=== PATIENT | female | born 1945 | race Caucasian/White ===

== ENCOUNTER 2023-03-05 09:17 | Observation (INO) ==
--- NOTE | 2023-01-28 10:20 | PAT Medication Instructions ---
Medication Instructions Date of Service January 28, 2023 Home Medications acetaminophen 500 mg tablet 500 mg PO Q6H PRN ascorbic acid (vitamin C) 1,000 mg tablet (Vitamin C) 1 g PO QAM cholecalciferol (vitamin D3) 50 mcg (2,000 unit) tablet (Vitamin D3) 100 mcg PO QAM clobetasol 0.05 % topical cream 1 applic topical BID PRN cyanocobalamin (vitamin B-12) 1,000 mcg tablet (Vitamin B-12) 1,000 mcg PO QAM docusate sodium 250 mg capsule (Stool Softener) 250 mg PO QPM PRN ibuprofen 200 mg tablet (Advil) 200 mg PO DAILY PRN naproxen sodium 220 mg capsule (Aleve) 220 mg PO QAM PRN oxycodone 5 mg tablet 5 mg PO BID PRN valacyclovir 1 gram tablet 1,000 mg PO DAILY PRN vit C 250 mg-vit E 90 mg-zinc 40 mg-copper 1 [id number] capsule (PreserVision AREDS-2) 1 tab PO BID vitamin B complex 1 cap PO QAM Continue as directed valacyclovir 1 gram tablet 1,000 mg PO DAILY PRN(if needed) ASK your surgeon for instructions ibuprofen 200 mg tablet (Advil) 200 mg PO DAILY PRN naproxen sodium 220 mg capsule (Aleve) 220 mg PO QAM PRN STOP taking 2 weeks before surgery (or as soon as possible if surgery is within 2 weeks) vit C 250 mg-vit E 90 mg-zinc 40 mg-copper 1 [id number]-[id number] capsule (PreserVision AREDS-2) 1 tab PO BID STOP taking 24 hours before surgery clobetasol 0.05 % topical cream 1 applic topical BID PRN DO NOT take the morning of surgery ascorbic acid (vitamin C) 1,000 mg tablet (Vitamin C) 1 g PO QAM cholecalciferol (vitamin D3) 50 mcg (2,000 unit) tablet (Vitamin D3) 100 mcg PO QAM cyanocobalamin (vitamin B-12) 1,000 mcg tablet (Vitamin B-12) 1,000 mcg PO QAM docusate sodium 250 mg capsule (Stool Softener) 250 mg PO QPM PRN vitamin B complex 1 cap PO QAM Take morning of surgery With a small sip of water, OTHERWISE NOTHING TO EAT OR DRINK AFTER MIDNIGHT: acetaminophen 500 mg tablet 500 mg PO Q6H PRN(if needed) oxycodone 5 mg tablet 5 mg PO BID PRN(if needed) Take evening before surgery acetaminophen 500 mg tablet 500 mg PO Q6H PRN(if needed) oxycodone 5 mg tablet 5 mg PO BID PRN(if needed) Other Notes If you have any questions please call us at [phone] or [phone] or [phone] or [phone]
--- NOTE | 2023-02-15 13:49 | Anesthesiology Consultation ---
Date of Service February 15, 2023 Assessment & Plan (1) Encounter for pre-operative examination: - Infectious disease screening: Per assessment on 02/15/23: Patient was Covid positive 01/29/23 (home test). was Covid positive shortly prior to patient developing symptoms/testing positive herself. Symptoms resolved- subsequent Covid home tests were negative. Pt can proceed as scheduled without additional preop Covid testing or additional Covid contact precautions per protocol. - Outpatient joint assessment: Pt currently scheduled for inpatient pathway. If surgeon requests review for outpatient joint pathway, patient is not recommended candidate for outpatient joint program from anesthesia standpoint based on available information. Chart Review Chart Review: Acceptable Risk for Surgery and Patient seen in Pre Admission Testing Teaching & Discussion Pre-Anesthesia Teaching/Discussion Notes: Instructed NPO after midnight before surgery,except medications with 15 cc of water. Medication instructions provided according to the PAT guidelines. History Surgery Operation Date: 03/05/23 10:55 Proposed Procedures p Right Total Knee Arthroplasty(Right) - Ivan Shaffer, Height/Weight Height: 5 ft 4 in Weight: 102.2 kg Allergies Allergy/AdvReac Type Severity Reaction Status Date / Time adhesive Allergy Severe skin Verified 01/28/23 08:29 reaction latex Allergy Unknown Unknown Verified 01/28/23 08:29 Medications Home Medications Medication Instructions Recorded Confirmed Last Taken acetaminophen 500 mg tablet 500 mg PO Q6H PRN Pain 01/28/23 01/28/23 Unknown ascorbic acid (vitamin C) 1,000 mg 1 g PO QAM 01/28/23 01/28/23 Unknown tablet (Vitamin C) cholecalciferol (vitamin D3) 50 100 mcg PO QAM 01/28/23 01/28/23 Unknown mcg (2,000 unit) tablet (Vitamin D3) clobetasol 0.05 % topical cream 1 applic topical BID PRN prn 01/28/23 01/28/23 Unknown cyanocobalamin (vitamin B-12) 1,000 mcg PO QAM 01/28/23 01/28/23 Unknown 1,000 mcg tablet (Vitamin B-12) docusate sodium 250 mg capsule 250 mg PO QPM PRN prn 01/28/23 01/28/23 Unknown (Stool Softener) ibuprofen 200 mg tablet (Advil) 200 mg PO DAILY PRN Pain 01/28/23 01/28/23 Unknown naproxen sodium 220 mg capsule 220 mg PO QAM PRN Pain 01/28/23 01/28/23 Unknown (Aleve) oxycodone 5 mg tablet 5 mg PO BID PRN Pain 01/28/23 01/28/23 Unknown valacyclovir 1 gram tablet 1,000 mg PO DAILY PRN prn 01/28/23 01/28/23 Unknown vit C 250 mg-vit E 90 mg-zinc 40 1 tab PO BID 01/28/23 01/28/23 Unknown mg-copper 1 [id number] capsule (PreserVision AREDS-2) vitamin B complex 1 cap PO QAM 01/28/23 01/28/23 Unknown Past Medical History Medical History Osteoarthritis History of kidney stones Hx 4-5 years ago, no issues since Exercise / Class Metabolic Activity III < 4 Walking/Shop/Light housework Past Surgical History Surgical History History of bilateral carpal tunnel release History of hysterectomy History of left knee replacement History of total left hip replacement History of lumbar spinal fusion L4-L5 fusion Hx of lithotripsy Past Anesthesia History No Hx of Anesthesia Complications and No Family Hx of Anesthesia Complications History of PONV No Hx of PONV and Hx of Motion Sickness (Situational) Social History Smoking Status: Never smoker Do You Dip or Chew Tobacco: No Hx Alcohol Use: Yes alcohol intake frequency: holidays/special occasions only Hx Substance Use: No Review of Systems Patient denies chest pain, shortness of breath, fever, chills, cough, wheezing, palpitations. Physical Exam Vital Signs VITALS BP 158/80 P 57 TEMP 98.7 SP02 96%RA RESP 18 PHYSICAL Full cervical extension range of motion. Full TMJ range of motion. TMD 3.5 finger breaths Mallampati Score 2 Dentition: missing molars, possible crown Lungs: clear throughout to auscultation Cardiac: regular rate and rhythm, no murmurs noted Spine: normal Carotid arteries: negative bruit Extremities: no LE edema Lab Results Anesthesia Preop Results Results Anesthesia Widget: WBC 6.47 K/ul (4.8-10.8) 02/15/23 Hgb 13.0 g/dl (12.0-16.0) 02/15/23 Hct 39.9 % (37.0-47.0) 02/15/23 Plt 230 K/uL (130-400) 02/15/23 Na 140 mmol/L (136-145) 02/15/23 K 4.7 mmol/L (3.5-5.1) 02/15/23 Cl 105 mmol/L (98-107) 02/15/23 CO2 29 mmol/L (21-32) 02/15/23 BUN 15 mg/dl (6-23) 02/15/23 Creat 0.60 mg/dl (0.6-1.2) 02/15/23 Glucose Level 95 mg/dl (70-99(Fasting)) 02/15/23 PT 10.7 Seconds (9.0-12.0) 02/15/23 PTT 26 Seconds (21-31) 02/15/23 INR 1.0 (0.9-1.1) 02/15/23 Blood Type O Negative 02/15/23 Antibody Screen NEGATIVE 02/15/23 Testing Electrocardiogram Date: 02/15/23 NSR at 70bpm. "Normal ECG" Chest X-Ray Date: 02/15/23 FINDINGS: PA and lateral chest radiographs are obtained. No prior studies are available for comparison at the time of dictation. The heart is mildly enlarged noting atherosclerotic calcification of the thoracic aorta. The pulmonary vasculature is noncongested. Linear scarring is seen in the left midlung. The lungs and pleural spaces are otherwise clear. There is no pneumothorax. The skeletal structures are osteopenic. The bony thorax appears intact. Degenerative change and hyperkyphosis is noted in the thoracic spine. IMPRESSION: Cardiomegaly with no active disease in the chest.
--- NOTE | 2023-03-04 12:35 | History & Physical Report ---
Date of Service March 04, 2023 Assessment & Plan (1) Osteoarthritis of right knee: We will proceed with a right total knee arthroplasty. Postoperatively she will be started on aspirin for DVT prophylaxis and kept overnight in the hospital for postop medical management. She plans to have the hospital set up home health upon discharge. History of Present Illness Chief Complaint: Osteoarthritis of the right knee. Primary Care Provider: Milind Potter MD Funmilayo is a pleasant 77-year-old female who has been dealing with chronic increasing right knee pain. She had a left knee replacement done by Dr. St in 2018. Unfortunately, she dealt with arthrofibrosis postoperatively. She still has poor motion of the knee. She is struggling more and more with her right knee. X-rays and clinical examination been diagnostic for osteoarthritis of the right knee. After failing conservative treatment, she has elected proceed with a right total knee arthroplasty. Allergies Allergy/AdvReac Type Severity Reaction Status Date / Time adhesive Allergy Severe skin Verified 01/28/23 08:29 reaction latex Allergy Unknown Unknown Verified 01/28/23 08:29 Home Medications Medication Instructions Recorded Confirmed Type acetaminophen 500 mg tablet 500 mg PO Q6H PRN Pain 01/28/23 01/28/23 History ascorbic acid (vitamin C) 1,000 mg 1 g PO QAM 01/28/23 01/28/23 History tablet (Vitamin C) cholecalciferol (vitamin D3) 50 100 mcg PO QAM 01/28/23 01/28/23 History mcg (2,000 unit) tablet (Vitamin D3) clobetasol 0.05 % topical cream 1 applic topical BID PRN prn 01/28/23 01/28/23 History cyanocobalamin (vitamin B-12) 1,000 mcg PO QAM 01/28/23 01/28/23 History 1,000 mcg tablet (Vitamin B-12) docusate sodium 250 mg capsule 250 mg PO QPM PRN prn 01/28/23 01/28/23 History (Stool Softener) ibuprofen 200 mg tablet (Advil) 200 mg PO DAILY PRN Pain 01/28/23 01/28/23 History naproxen sodium 220 mg capsule 220 mg PO QAM PRN Pain 01/28/23 01/28/23 History (Aleve) oxycodone 5 mg tablet 5 mg PO BID PRN Pain 01/28/23 01/28/23 History valacyclovir 1 gram tablet 1,000 mg PO DAILY PRN prn 01/28/23 01/28/23 History vit C 250 mg-vit E 90 mg-zinc 40 1 tab PO BID 01/28/23 01/28/23 History mg-copper 1 [id number]-wmbuqp capsule (PreserVision AREDS-2) vitamin B complex 1 cap PO QAM 01/28/23 01/28/23 History Past Med/Surg History Medical History Osteoarthritis History of kidney stones Hx 4-5 years ago, no issues since Surgical History History of bilateral carpal tunnel release History of hysterectomy History of left knee replacement History of total left hip replacement History of lumbar spinal fusion L4-L5 fusion Hx of lithotripsy Social History Smoking Status: Never smoker Second Hand Exposure: No; Do You Dip or Chew Tobacco: No; Tobacco Cessation Education Requested by Patient: No Hx Alcohol Use: Yes Hx Substance Use: No Preferred Language: [place] Vice President Digital Strategist Required: No Beliefs That Will Affect Care: None Current Living Situation: Spouse Other Information That Helps Us Care for You: No Feels Safe at Home: Yes Safety Concerns: Feels Safe At This Time Assistive Devices: Cane and Glasses Review of Systems All systems reviewed & are unremarkable except as noted in HPI & below. Physical Exam On physical examination the right knee, she has a varus deformity. She has tenderness palpation of the distal medial femoral condyle and over the medial joint line.. Constitutional WD/WN, vitals as above Eyes PERRL, conjunctivae normal, anicteric sclerae ENMT external ear and nose normal, oropharynx normal Neck trachea midline, no thyromegaly Respiratory normal respiratory effort Cardiovascular RRR, no murmur, no edema Gastrointestinal (Abdomen) normal bowel sounds, soft, nontender, no hepatosplenomegaly Psychiatric A+Ox3, euthymic affect Results & Data Results & Data Laboratory Results . Diagnostic Findings X-rays of the right knee show advanced osteoarthritis with joint space narrowing, osteophyte formation, and eykc-ji-rhxv articulation. PG Care Time/CCT Total # of Minutes Spent Total Time Spent with Patient: Total time spent is greater than 50% in coordination of care (as documented) at patient's floor/unit and/or counseling patient: Coding Level of Care Code None Diagnoses Osteoarthritis of right knee M17.11
[~2023-03-05 09:17] MED LIST: ACETAMINOPHEN 500 MG TAB PO SCH; FAMOTIDINE 20 MG TAB PO SCH; GABAPENTIN 300 MG CAP PO SCH; LR 500ML BOLUS, THEN 15ML/HR IV SCH; LR 60ML/HR IV SCH; ROPIV 0.5% 246mg, Ketorolac 30mg, EPINEPHrine 0.5mg in NSS INFIL SCH; ROPIVACAINE 0.5% 5 MG/ML 30 ML VIAL ONE; TRANEXAMIC ACID 1,000 MG **IV Intra-op IV SCH; TRANEXAMIC ACID 1,000 MG **IV Pre-op IV SCH; ceFAZolin 2000MG 2,000 MG/15 ML SYR IV SCH; dexAMETHasone**PF** 10 MG/ML VIAL IV SCH
[2023-03-05] MEDS ORDERED: MIDAZOLAM HCL 1 MG/ML 2ML VIAL ONE (09:38)
--- NOTE | 2023-03-05 10:17 | History & Physical Bridge Note ---
Date of Service March 05, 2023 History & Physical Bridge Note I have examined the patient, reviewed the History & Physical and in the interval since the performance of the History & Physical I have noted the following changes of clinical significance: no changes noted
[2023-03-05] MEDS ORDERED: ePHEDrine sulfate 50 MG/ML AMP IV PRN (10:26)
[2023-03-05] MEDS ORDERED: ATROPINE SULFATE 0.1 MG/ML 10ML SYR IV PRN (10:26)
[2023-03-05] MEDS ORDERED: KETOROLAC 30 MG/ML VIAL IV PRN (10:26)
[2023-03-05] MEDS ORDERED: HYDROmorphone INJ 1 MG/ML SYRINGE IV PRN (10:26)
[2023-03-05] MEDS ORDERED: ORTHO JOINT ANESTHETIC ONE (10:40)
[2023-03-05] MEDS ORDERED: fentaNYL citrate PF 100 MCG/2 ML VIAL ONE (10:41)
[2023-03-05] MEDS ORDERED: PROPOFOL IV EMULSION 10 MG/ML 20 ML VIAL IV ONE (11:24)
[2023-03-05] MEDS ORDERED: ONDANSETRON INJ 2 MG/ML 2 ML VIAL ONE (11:24)
--- NOTE | 2023-03-05 13:22 | XRay Report ---
XR knee RT 1 or 2V routine HISTORY: 77 years-old Female Surgical Post Op right knee arthroplasty COMPARISON: 12/15/2022 TECHNIQUE: 2 views of the right knee FINDINGS: Total arthroplasty with patellar resurfacing. Anterior midline skin andreea with expected postoperati ve soft tissue swelling and deep tissue air. No acute fracture, dislocation or radiopaque foreign bod y. IMPRESSION: Total joint arthroplasty with expected postoperative changes. ACT 112: Negative or not required by law. The above report was generated using voice recognition software. It may contain grammatical, syntax o r spelling errors. Electronically signed by: Gray Aragon M.D. 03/05/2023 1:21 PM
--- NOTE | 2023-03-05 13:48 | Operative Report ---
PG Post Operative Report Pre & Post Diagnosis Operation Date: 03/05/23 10:55 Pre-Op Diagnosis: Degenerative Joint Disease Right Knee Post-Op Diagnosis: Degenerative Joint Disease Right Knee I identified the patient and participated in the time-out.: Yes Procedure Operation Date: 03/05/23 10:55 Actual Procedures p Right Total Knee Arthroplasty(Right) - Ivan Shaffer DO Surgeon Ivan Shaffer DO Packing Floor Worker Ivan Fernandez PA-C Estimated Blood Loss 30 Findings Consistent with Post-Op Diagnosis Specimens Right femoral and tibial bone Description of Procedure Implants used: I used a Susanne Persona total knee arthroplasty system with a size 9 narrow PS femur, D tibia, 31 oval patella, and a size 10 CPS polyethylene bearing. All components were cemented in place with Biomet cement. Funmilayo arrived [facility] for the above procedure. She was seen in the preoperative holding area and the operative extremity was identified and signed. She was given a preoperative antibiotic, TXA, a spinal anesthetic and an adductor nerve block. She was taken back to the operating room and laid on the table in supine position. She was given basic sedation. The operative knee was then prepped and draped in sterile fashion. A timeout was done, and the patient and the operative extremity was properly identified. A midline incision was made directly over the patella. Dissection was taken down to the extensor mechanism. A medial parapatellar arthrotomy was used. The medial retinaculum was released and the fat pad was mostly excised. The knee was flexed and the ACL, PCL, and meniscus were removed. A drill was sent down the center of the femoral canal followed by an intramedullary rosa. Off that rosa a distal femoral cutting block was placed. 9 mm was resected off the distal femur at 5 of valgus. A posterior referencing AP sizing guide was then placed on the distal femur. The femur measured to be a size 9. 2 drill holes were placed in 3 of external rotation. A 4-in-1 cutting block was then impacted into place. Anterior, posterior, and chamfer cuts were then made. The proximal tibia was then exposed. An external tibial alignment guide was placed. A tibial cut guide was then anchored in place and the proximal tibia was then resected. The posterior aspect of the knee was then opened up and any additional meniscus fragments and osteophytes were removed. The tibia measured to be a size D. The tibial plate was then placed in the appropriate rotation and the tibia was drilled and punched. Trial components were then placed. I used a size 10 CPS 31 oval polyethylene insert. The knee was brought through a full range of motion and felt to be stable. The peg holes for the femoral component were then drilled. The patella was then everted and 9 mm was resected off the posterior aspect of the patella. The patella measured to be a size . 3 peg holes were then drilled. A trial patella was placed. The knee was once again brought through a full range of motion and felt to be stable. Trial components were then removed. The surrounding soft tissues were injected with 100 cc of an orthopedic pain control cocktail. All components were then cemented into place with Biomet cement. The final polyethylene insert was then snapped into place. Once cement was dry the tourniquet was deflated. Hemostasis was obtained. A dilute betadyne lavage was then done for 3 minutes. The joint was then irrigated with normal saline solution. The medial parapatellar arthrotomy was then closed with #1 Vicryl suture. The skin was closed with 2-0 Vicryl, 3-0V lock suture, and andreea. A soft compressive dressing was placed. She was then transferred to a hospital bed and taken to the postanesthesia care unit in stable condition. She tolerated the procedure well. Ivan Fernandez PA-C, was present for the entire procedure. He was critical for patient positioning, prepping, draping, retraction exposure, wound closure and application of sterile dressing. I attest to the content of the Intraoperative Record and any orders documented therein. Any exceptions are noted below.
[2023-03-05] MEDS ORDERED: bisacodyL 10 MG SUPP PR PRN (14:08)
[2023-03-05] MEDS ORDERED: ONDANSETRON INJ 2 MG/ML 2 ML VIAL IV PRN (14:08)
[2023-03-05] MEDS ORDERED: METOCLOPRAMIDE HCL INJ 5 MG/ML 2 ML VIAL IV PRN (14:08)
[2023-03-05] MEDS ORDERED: NALOXONE HCL 0.4 MG/1 ML VIAL/CARP IV PRN (14:08)
[2023-03-05] MEDS ORDERED: HYDROmorphone INJ 0.5 MG/0.5 ML SYR IV PRN (14:08)
[2023-03-05] MEDS ORDERED: CLOBETASOL PROPIONATE 0.05% CREAM 15 GM TUBE TOP PRN (14:08)
[2023-03-05] MEDS ORDERED: valACYclovir HCL 500 MG TABLET PO PRN (14:08)
[2023-03-05] MEDS ORDERED: MAGNESIUM HYDROXIDE SUSP 30 ML UDC PO PRN (14:08)
[2023-03-05] MEDS: SODIUM CHLORIDE 0.9% 1,000 ML IV SCH (15:10)
--- NOTE | 2023-03-05 15:16 | Anesthesiology Progress Note ---
Date of Service March 05, 2023 Anesthesia Post Procedure Vital Signs Vital Signs: Temp Pulse Pulse Resp BP BP Pulse Ox 03/05/23 15:10 36.6 C 70 18 135/75 93 03/05/23 14:40 36.6 C 68 16 130/77 95 03/05/23 14:09 36.4 C L 75 16 135/80 96 03/05/23 13:55 36.6 C 75 18 141/66 H 95 03/05/23 13:45 36.6 C 77 17 139/66 92 03/05/23 13:35 75 20 140/68 91 03/05/23 13:25 75 12 136/56 L 94 03/05/23 13:15 82 19 140/66 91 03/05/23 13:05 82 18 136/67 96 03/05/23 12:59 36.0 C L 96 H 16 137/73 96 03/05/23 09:45 36.7 C 76 18 170/82 H 98 O2 Del Method 03/05/23 15:10 Room Air 03/05/23 14:40 Room Air 03/05/23 14:09 Room Air 03/05/23 13:55 Room Air 03/05/23 13:45 Room Air 03/05/23 13:35 Room Air 03/05/23 13:25 Room Air 03/05/23 13:15 Room Air 03/05/23 13:05 Room Air 03/05/23 12:59 Room Air 03/05/23 09:45 Room Air Transfer of Care Handoff Completed per policy Notes Mental Status: alert / awake / arousable Patient Amnestic to Procedure: Yes Nausea / Vomiting: adequately controlled Pain: adequately controlled Airway Patency, RR, SpO2: stable & adequate BP & HR: stable & adequate Hydration State: stable & adequate Anesthetic Complications: no major complications apparent
[2023-03-05] MEDS: ACETAMINOPHEN 500 MG TAB PO SCH ×2 (15:29→21:21)
[2023-03-05] MEDS: KETOROLAC TROMETHAMINE 15 MG/ML VIAL IV SCH ×2 (15:30→19:57)
[2023-03-05] MEDS: ceFAZolin 2000MG 2,000 MG/15 ML SYR IV SCH (19:56)
[2023-03-05] MEDS: ASPIRIN 81 MG ECTAB PO SCH (19:59)
[2023-03-05] MEDS: DOCUSATE SODIUM 100 MG CAP PO SCH (20:00)
[2023-03-05] MEDS ORDERED: SENNA 8.6 MG TAB PO SCH (21:00)
[2023-03-05] MEDS: oxyCODONE HCL IR 5 MG TAB (IMMEDIATE RELEASE) PO PRN (21:21)
[2023-03-06] MEDS: SODIUM CHLORIDE 0.9% 1,000 ML IV SCH (00:32)
[2023-03-06] MEDS: KETOROLAC TROMETHAMINE 15 MG/ML VIAL IV SCH ×2 (05:01→08:01)
[2023-03-06] MEDS: ceFAZolin 2000MG 2,000 MG/15 ML SYR IV SCH (05:01)
[2023-03-06] MEDS: ACETAMINOPHEN 500 MG TAB PO SCH (06:02)
--- NOTE | 2023-03-06 06:45 | Orthopedic Progress Note ---
Date of Service March 06, 2023 Assessment & Plan (1) Status post right knee replacement: Overall she is doing very well. She is not having much pain in the right knee. She has been up and ambulating to the bathroom. She will be seen by physical therapy today for ambulation and range of motion exercises. She is on aspirin for DVT prophylaxis. She can be discharged home later today. She will follow- up with orthopedics in 2 weeks. Johnny Mello was seen and examined at bedside this morning. Overall she is doing fairly well. She is not having too much pain in the right knee. She been up and ambulating to the bathroom. She is no complaints.. Review of Systems All systems reviewed & are unremarkable except as noted in HPI & below. Physical Exam On physical examination of the right knee, the dressing is clean and dry. Her leg is out full extension. She has active dorsiflexion plantarflexion of her right ankle.. Results & Data Results & Data Laboratory Results . Diagnostic Findings Postoperative x-rays of the right knee show the prosthesis to be in anatomic alignment without any evidence of fracture complication, or loosening.. PG Care Time/CCT Total # of Minutes Spent Total Time Spent with Patient: Total time spent is greater than 50% in coordination of care (as documented) at patient's floor/unit and/or counseling patient: Coding Level of Care Code 00790 Post Operative Follow-Up Diagnoses Status post right knee replacement Z96.651
--- NOTE | 2023-03-06 06:46 | Discharge Summary ---
Date of Service March 06, 2023 Admission HPI (Per Admitting) Funmilayo is a pleasant 77-year-old female who has been dealing with chronic increasing right knee pain. She had a left knee replacement done by Dr. St in 2018. Unfortunately, she dealt with arthrofibrosis postoperatively. She still has poor motion of the knee. She is struggling more and more with her right knee. X-rays and clinical examination been diagnostic for osteoarthritis of the right knee. After failing conservative treatment, she has elected proceed with a right total knee arthroplasty. Admission Exam (Per Admitting) On physical examination the right knee, she has a varus deformity. She has tenderness palpation of the distal medial femoral condyle and over the medial joint line.. Principal Diagnosis Same as "Discharge Diagnosis" noted below under Discharge Instructions. Discharge Exam On physical examination of the right knee, the dressing is clean and dry. Her leg is out full extension. She has active dorsiflexion plantarflexion of her right ankle.. Discharge Data Procedures Performed Operation Date: 03/05/23 10:55 Actual Procedures p Right Total Knee Arthroplasty(Right) - Ivan Shaffer DO Ordered Studies 03/05/23 05:00 US - OR guided needle placemen Routine Hospital Course (1) Status post right knee replacement: On March 05, 2023 Eloisa arrived at [facility] and underwent a right knee replacement without complication. She had a spinal anesthetic. Postoperatively she was started on aspirin for DVT prophylaxis and transferred to the general orthopedic floors. Her hospital course was uneventful. On postop day #1, her vital signs were stable and her pain was well-controlled. She was able to participate well with physical therapy doing ambulation and range of motion exercises. She was then discharged to home. She will follow-up with orthopedics in 2 weeks. PG Care Time/CCT Total # of Minutes Spent Total Time Spent with Patient: Total time spent is greater than 50% in coordination of care (as documented) at patient's floor/unit and/or counseling patient: Discharge Plan Discharge Items Patient Disposition: Home - Self-Care Reason For Visit: Degenerative Joint Disease Right Knee Discharge Diagnosis: Right knee replacement Activity: Per Instructions section Non-emergency contact: Surgeon Call non-emergency contact if: your wound has increased redness and your wound has increased drainage Follow-up/Referrals: Milind Potter MD [Primary Care Provider] - Diet: Regular Addtl Attending Provider Instructions: Activity and Therapy Recommendations: * If you are using [facility] then therapy will be provided at your home until they feel you have accomplished all of your goals. * If you are using [facility] then Physical Therapy will be provided until they feel you are ready to start Outpatient Physical Therapy. * If you are not using home therapy then Outpatient Physical Therapy should start about 3-5 days from your day of surgery. Therapy will last about 6-10 weeks * It is important not to put a pillow under your knee when you are relaxing or sleeping. It is just as important to make sure you are getting your knee p erfectly straight as it is to regain your knee bend. * You were shown a series of exercises in the hospital. Do these exercises three times each day including the exercises you were shown in physical therapy. * Get up and walk several times each day. For the first four weeks, try not to stand or walk for more than one hour at a time. If you do stand or walk for more than one hour, you will not hurt anything, but your leg will likely swell. * As you feel comfortable, you may change from the walker or crutches to a cane and then to independent walking. Medications: * Narcotic You will likely be sent home from the hospital with a prescription for the narcotic pain medication that worked best throughout your stay. * Cefadroxil -take the antibiotic twice a day for 10 days to help prevent infection. * Aspirin Most patients will be required to take Aspirin 81mg twice a day for 6 weeks after surgery. This is obtained [id number] and a prescription is not necessary. * Other medications may be prescribed for specific circumstances. If you have any questions, please call the office at . * Resume previous home medications unless otherwise instructed TEDs/Elastic Stockings: The white elastic stockings help limit swelling and prevent blood clots from forming in your legs.~ The more you wear them, the more they work. Wear them for six weeks. Dressing Care: The dressing can be changed after physical therapy on postop day #1. Daily dry dressing changes for a few days, especially if the incision is still draining some. If the incision is not draining then you may leave the andreea open to air. If there is a little bit of drainage or if the andreea are getting stuck on your clothing then cover the incision with a dry dressing. The andreea will be removed at your 2 week follow-up appointment. Showering: You may shower 5 days from the day of surgery as long as the incision is no longer draining. You may shower with the andreea exposed. Let soapy water run over the andreea and pat them dry. Do not scrub or soak the incision. Things To Watch For: * Drainage from the incision site that occurs more than one week after your surgery. * Increased redness at the incision site. * Fever above 102 degrees Fahrenheit. * Unusual chest pain or shortness of breath. * Call [facility] at with any of the above problems Follow-Up Visit: Follow-up with Dr. Shaffer's PA (Ivan Fernandez) 2-3 weeks after your day of surgery. He will remove your andreea and answer any questions. If you have any additional questions or concerns, Dr Shaffer is usually in the office at the same time and will be available An appointment was probably scheduled when you signed-up for surgery in the office. If you have any questions call Office Instructions: More detailed instructions as well as Frequently Asked Questions were provided in a folder by our office when you signed-up for surgery. Please review these instructions when you get home. If you have any further questions or concerns, please feel free to call the office at [phone] Pending Studies at Discharge: No Stand-Alone Forms: [facility] Medications and DC Order Prescriptions: New cefadroxil 500 mg capsule 500 mg PO BID 10 Days Qty: 20 0RF docusate sodium [Dulcolax Stool Softener (dss)] 100 mg capsule 100 mg PO TID PRN (Reason: constipation) Qty: 20 0RF aspirin 81 mg Tablet,Delayed Release (Dr/Ec) 81 mg PO BID 42 Days Qty: 0 0RF Continued docusate sodium [Stool Softener] 250 mg Capsule 250 mg PO QPM PRN (Reason: prn) valacyclovir 1 gram Tablet 1,000 mg PO DAILY PRN (Reason: prn) PreserVision AREDS-2 250-90-40-1 mg Capsule 1 tab PO BID ascorbic acid (vitamin C) [Vitamin C] 1,000 mg Tablet 1 g PO QAM clobetasol 0.05 % Cream 1 applic TOPICAL BID PRN (Reason: prn) cyanocobalamin (vitamin B-12) [Vitamin B-12] 1,000 mcg Tablet 1,000 mcg PO QAM vitamin B complex [B Complex] Capsule 1 cap PO QAM cholecalciferol (vitamin D3) [Vitamin D3] 50 mcg (2,000 unit) Tablet 100 mcg PO QAM acetaminophen 500 mg Tablet 500 mg PO Q6H PRN (Reason: Pain) naproxen sodium [Aleve] 220 mg Capsule 220 mg PO QAM PRN (Reason: Pain) ibuprofen [Advil] 200 mg Tablet 200 mg PO DAILY PRN (Reason: Pain) Changed oxycodone 5 mg Tablet 5 mg PO Q6H PRN (Reason: Pain) Qty: 30 0RF Discharge Orders: Discharge Order (Routine); Ordered 03/06/23 Ordered By: Ivan Shaffer Admission Data Admit Date/Time: 03/05/23 13:04 Attending Provider: Ivan Shaffer Admit Provider: Ivan Shaffer Primary Care Provider: Milind Potter Other Providers: Harmeet Huizar kang
[2023-03-06] MEDS: ASPIRIN 81 MG ECTAB PO SCH (08:00)
[2023-03-06] MEDS ORDERED: dexAMETHasone 4 MG TAB PO SCH (08:00)
[2023-03-06] MEDS: DOCUSATE SODIUM 100 MG CAP PO SCH (08:01)
[2023-03-06] MEDS ORDERED: MULTIVITAMIN TAB PO SCH (09:00)
[2023-03-06] MEDS: oxyCODONE HCL IR 5 MG TAB (IMMEDIATE RELEASE) PO PRN (09:32)
== END 2023-03-06 12:10 | disposition home or self-care (01) ==
LOC: 3W 09:17 → ASU 09:17